=== PATIENT | female | born 1970 | race Caucasian/White ===

== ENCOUNTER 2023-06-13 09:14 | Day surgery (SDC) | payer BC ==
--- NOTE | 2023-06-13 08:46 | HP ---
DATE OF SURGERY: 06/13/2023 HISTORY OF PRESENT ILLNESS: The patient is a 52-year-old with history of polyps in the past. No bloody stools. She had COVID a few months ago. Some intermittent gas and constipation, diarrhea at times. Cramps when she eats. Family history of grandmother with colon cancer. Last colonoscopy five years ago. History of polyps. PAST MEDICAL HISTORY: Gas, constipation, diarrhea, chronic obstructive pulmonary disease. She has history of COVID in the past. PAST SURGICAL HISTORY: Tonsillectomy. Appendectomy. Salpingectomy. Colonoscopy in the past. MEDICATIONS: Advair Diskus, Midol Complete. ALLERGIES: CLARITIN D. FAMILY HISTORY: Colon cancer. SOCIAL HISTORY: No smoking or alcohol abuse. REVIEW OF SYSTEMS: Twelve systems reviewed per admission assessment. No chest pain or palpitations. Other systems negative or noncontributory as above and per preadmission questionnaire. PHYSICAL EXAMINATION: Height 5'3". BMI 33.66. GENERAL: No acute distress. HEENT: Sclerae nonicteric. EOMI. Oral mucous membranes moist. NECK: No JVD. CHEST: Equal excursion, nonlabored breathing. CVS: Regular rate and rhythm. ABDOMEN: Soft. EXTREMITIES: No cyanosis or edema. NEURO: Alert, oriented, moving extremities symmetrically. RECTAL: Deferred timed to endoscopy exam. PSYCH: Appropriate mood and affect. SKIN: Dry. IMPRESSION: History of polyps, change in bowel habits, needs follow up colonoscopy. Risks explained in detail including but not limited to bleeding or infection. Given history of polyps needs follow up screening colonoscopy. She was shown the risk sheet and explained in detail including but not limited to bleeding, infection, risk of bowel injury or perforation possibly requiring further procedure, risk of missed or nondiagnosis or incomplete exam possibly requiring barium enema, barium swallow, risk of missed or nondiagnosis, possibly requiring other procedure or referral, risk of sedation, risk of bowel prep. Otherwise, will proceed with colonoscopy under MAC anesthesia. Otherwise, continue medications for chronic obstructive pulmonary disease.
[2023-06-13] MEDS ORDERED: Lactated Ringers 1,000 ML IV SCH (09:30)
[2023-06-13 09:43] LABS: HCG URINE TEST NEGATIVE (NEGATIVE)
[2023-06-13] MEDS ORDERED: Lactated Ringers 1,000 ML IV ONE (09:54)
[2023-06-13] MEDS ORDERED: Versed 2 MG/2 ML Injection ONE (12:00)
[2023-06-13] MEDS ORDERED: DIPRIVAN 200 MG/20 ML IV ONE ×2 (12:03→12:16)
[2023-06-13 12:59] VITALS: RESP 18
[2023-06-13 13:08] VITALS: TEMP 97.4; O2SAT 97
[2023-06-13 13:25] VITALS: BP 147/87; PULSE 70
--- NOTE | 2023-06-13 14:21 | OP ---
SURGERY DATE/TIME: 06/13/2023 1204 PREOPERATIVE DIAGNOSIS: Prior history of polyp, need follow up screening colonoscopy. POSTOPERATIVE DIAGNOSES: 1) Multiple small polyps. 2) Fair limited side bowel prep. 3) ASA Class II. PROCEDURES: 1) Colonoscopy to cecum. 2) Hot biopsy polypectomy cecal polyp. 3) Hot biopsy polypectomy ascending colon polyp. 4) Hot biopsy polypectomy transverse colon polyp. 5) Hot biopsy polypectomy sigmoid colon polyp x5. 6) Hot biopsy polypectomy rectal polyp x6. 7) Withdrawal time is about 13 minutes. SURGEON: Dr. Preet Burns. ANESTHESIA: MAC. ESTIMATED BLOOD LOSS: Minimal. INDICATIONS: As noted above. Risks and benefits explained in detail but not limited to and consent obtained. DESCRIPTION OF PROCEDURE AND FINDINGS: The patient is taken to the endoscopy room. MAC anesthesia induced. After official time out and no disagreement with planned procedure, digital rectal exam did not reveal any rectal masses. Video colonoscope inserted and passed up through the tortuous sigmoid, descending, transverse and ascending colon. There is a fair amount of liquidy semisolid stool suctioned irrigated as clear as possible. Fair but limited bowel prep. The scope was able to reach around to the cecum. Appendiceal orifice and ileocecal valve well visualized and photo documented. In the appendiceal orifice and valve area itself, there was a polyp in the cecum that was removed with hot biopsy polypectomy and another one in the ascending colon, two in the transverse colon. The one in the cecum looked more adenomatous. The others looked more hyperplastic. There were five hyperplastic appearing polyps removed with hot biopsy polypectomy in the sigmoid colon. Nine in the proximal rectum splayed out a little bit removed in piecemeal fashion. The scope is withdrawn. Withdrawal time was about 13 minutes. There were no signs of any large masses or obstructing lesions. There were no signs of any large diverticula. Whether she had some tiny diverticula or not but no large diverticula. She had somebody with her but did not want me to talk to. I will see her back in the office next week to discuss findings.
== END 2023-06-13 13:30 | disposition home or self-care (01) ==
LOC: SDC 09:14
PROVIDERS: ATTEND Surgery
DX: Z12.11 Encounter for screening for malignant neoplasm of colon (principal); Z80.0 Family history of malignant neoplasm of digestive organs; Z09 Encounter for follow-up examination after completed treatment for conditions other than malignant neoplasm; Z86.010 Personal history of colon polyps; D12.2 Benign neoplasm of ascending colon; D12.0 Benign neoplasm of cecum; D12.3 Benign neoplasm of transverse colon; K62.1 Rectal polyp
CPT/HCPCS: 81025; J2250; J2704